=== PATIENT | male | born 1990 | race Caucasian/White ===

== ENCOUNTER 2019-11-26 19:32 | Emergency (ER) | payer SELFPAY ==
[2019-11-26 19:44] VITALS: BP 135/83; PULSE 92
--- NOTE | 2019-11-26 19:50 | EDM.PDOC ---
ED HPI GENERAL MEDICAL PROBLEM - General Chief Complaint: Respiratory Problem Stated Complaint: COUGH FOR 3 WEEKS Time Seen by Provider: 11/26/19 19:44 - History of Present Illness INITIAL COMMENTS - FREE TEXT/NARRATIVE: 29-year-old male presents the emergency room with a cough. This cough is been present for over 3 weeks now and just does not get better. Early on the patient had some stomach upset but with clear liquids this did get better but for the last couple weeks he to has this persistent cough. 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 The patient denies any fevers or chills. He has not had any significant chest discomfort or other complaints with this. - Related Data Allergies Allergy/AdvReac Type Severity Reaction Status Date / Time No Known Allergies Allergy Verified 11/26/19 19:42 Home Meds: Home Meds Doxycycline Hyclate 100 mg PO Q12H #18 tablet 11/26/19 [Rx] Past Medical History - Past Health History Medical/Surgical History: Denies Medical/Surgical History Social & Family History - Family History Family Medical History: Noncontributory - Caffeine Use Caffeine Use: Reports: Soda Other Caffeine Use: Mountain Dew ED ROS GENERAL - Review of Systems Review Of Systems: See Below Constitutional: Reports: No Symptoms HEENT: Reports: No Symptoms Respiratory: Reports: Cough. Denies: Shortness of Breath, Wheezing, Pleuritic Chest Pain, Sputum Cardiovascular: Reports: No Symptoms Endocrine: Reports: No Symptoms GI/Abdominal: Reports: No Symptoms ED EXAM, GENERAL - Physical Exam Exam: See Below Exam Limited By: No Limitations General Appearance: Alert, No Apparent Distress Eye Exam: Bilateral Eye: Normal Inspection Ears: Normal External Exam, Normal Canal, Hearing Grossly Normal, Normal TMs Nose: Normal Inspection, Normal Mucosa, No Blood Throat/Mouth: Normal Inspection, Normal Lips, Normal Gums, Normal Oropharynx, Normal Voice, No Airway Compromise, Other (All his teeth removed awaiting dentures) Head: Atraumatic, Normocephalic Neck: Normal Inspection, Supple, Non-Tender, Full Range of Motion. No: Lymphadenopathy (L), Lymphadenopathy (R) Respiratory/Chest: No Respiratory Distress, Lungs Clear, Normal Breath Sounds, No Accessory Muscle Use, Chest Non-Tender Cardiovascular: Regular Rate, Rhythm, No Edema, No Murmur Course - Vital Signs Last Recorded V/S: Last Vital Signs Temp 37.6 C 11/26/19 19:42 Pulse 92 11/26/19 19:42 Resp 19 11/26/19 19:42 BP 135/83 11/26/19 19:42 Pulse Ox 98 11/26/19 20:09 - Orders/Labs/Meds Orders: Active Orders 24 hr Category Date Time Status RT Post Treatment Assessment [RC] Click to Edit Care 11/26/19 19:52 Active RT Pre-Treatment Assessment [RC] Click to Edit Care 11/26/19 19:52 Active Chest 2V [CR] Stat Exams 11/26/19 19:51 Taken Doxycycline [Vibramycin] Med 11/26/19 20:15 Once 200 mg PO ONETIME ONE Medication Orders Doxycycline Hyclate (Vibramycin) 200 mg PO ONETIME ONE Stop: 11/26/19 20:16 Meds: Medications Generic Name Dose Route Start Last Admin Trade Name Freq PRN Reason Stop Dose Admin Doxycycline Hyclate 200 mg 11/26/19 20:15 Vibramycin PO 11/26/19 20:16 ONETIME ONE Discontinued Medications Generic Name Dose Route Start Last Admin Trade Name Freq PRN Reason Stop Dose Admin Albuterol 0 gm 11/26/19 19:51 11/26/19 20:08 Proventil Hfa INH 11/26/19 19:52 2 puff ONETIME ONE Administration - Re-Assessments/Exams Free Text/Narrative Re-Assessment/Exam: 11/26/19 20:19 Patient reports improvement after 2 puffs of albuterol from an MDI. Chest x- ray shows lower segmental right middle lobe density most likely representing an infiltrate. Patient be started on doxycycline as well as the MDI Departure - Departure Time of Disposition: 20:20 Disposition: Home, Self-Care 01 Clinical Impression: Pneumonia - Discharge Information Prescriptions: Doxycycline Hyclate 100 mg PO Q12H #18 tablet Referrals: PCP,None [Primary Care Provider] - Forms: ED Department Discharge Additional Instructions: Return to the emergency room with any questions problems or worsening symptoms. Take the antibiotics until all gone 1 twice daily. Use the inhaler 2 puffs every 4 hours while awake. Follow-up in the hospital clinic at the end of next week for recheck. [id number] Sepsis Event Note - Evaluation Sepsis Screening Result: No Definite Risk - Focused Exam Vital Signs: Vital Signs Temp Pulse Resp BP Pulse Ox Pulse Ox 11/26/19 20:09 98 11/26/19 19:42 37.6 C 92 19 135/83 97 Date Exam was Performed: 11/26/19 Time Exam was Performed: 20: - My Orders Last 24 Hours: My Active Orders 11/26/19 19:51 Chest 2V [CR] Stat 11/26/19 19:52 RT Post Treatment Assessment [RC] Click to Edit RT Pre-Treatment Assessment [RC] Click to Edit 11/26/19 20:15 Doxycycline [Vibramycin] 200 mg PO ONETIME ONE - Assessment/Plan Last 24 Hours: My Active Orders 11/26/19 19:51 Chest 2V [CR] Stat 11/26/19 19:52 RT Post Treatment Assessment [RC] Click to Edit RT Pre-Treatment Assessment [RC] Click to Edit 11/26/19 20:15 Doxycycline [Vibramycin] 200 mg PO ONETIME ONE
[2019-11-26] MEDS ORDERED: Albuterol 6.7 GM Inhaler INH ONE (19:51)
[2019-11-26] MEDS ORDERED: Doxycycline 100 MG Cap PO ONE (20:15)
--- NOTE | 2019-11-28 07:24 | CR ---
Chest: Two views of the chest were obtained. Comparison: No prior chest imaging. Increased density noted within the right mid and lower lung. Left lung is clear. Heart size and mediastinum are normal. Bony structures are unremarkable. Impression: 1. Increased density within the right lung as noted above. Findings most likely represent pneumonia. 2. Follow-up PA chest x-ray could be obtained after clinical therapy is complete to make sure finding resolves. Diagnostic code #3 This report was dictated in Mountain Standard Time
== END 2019-11-26 20:30 | disposition home or self-care (01) ==
LOC: JD.ED 19:32
DX: J18.9 Pneumonia, unspecified organism (principal)
CPT/HCPCS: 71046; 94640; 99283; A9270

== ENCOUNTER 2020-02-07 17:20 | Emergency (ER) | payer OTHER ==
[2020-02-07 17:28] VITALS: BP 128/86
[2020-02-07 17:30] VITALS: PULSE 69
[2020-02-07] MEDS ORDERED: HYDROmorphone 0.5 MG/0.5 ML Syringe IVPUSH ONE ×2 (17:33→20:58)
[2020-02-07] MEDS ORDERED: Ondansetron 4 MG/2 ML SDV IVPUSH ONE (17:33)
--- NOTE | 2020-02-07 17:39 | EDM.PDOC ---
ED HPI GENERAL MEDICAL PROBLEM - General Chief Complaint: Trauma Stated Complaint: FELL FROM ROOF/20FT Time Seen by Provider: 02/07/20 17:33 Source of Information: Reports: Patient, Family (co worker ) History Limitations: Reports: No Limitations - History of Present Illness INITIAL COMMENTS - FREE TEXT/NARRATIVE: 30-year-old male presents to the ED for evaluation of injuries to his right lower back and buttock on the right side after falling off a roof that he was working on. He states that he accidentally stepped on a ladder suellen and lost his balance and fell about 20 feet to the hard frozen ground. He landed hard on his right buttock and was unable to get up from the ground on his own volition. He is unable to bear weight on the right side. This injury occurred and killed their approximately 45 minutes to an hour ago. He denies hitting his head or losing consciousness. He states he did have the wind knocked out of him. He was slightly nauseated for a period of time but now feels somewhat better. Current pain is 8 out of 10 in the right buttock area. Denies losing control of his bowel or bladder. Is sitting primarily on his left buttock cheek and not able to put weight on the right buttock or iliac crest. Onset: Today Onset Date: 02/07/20 Onset Time: 16:30 Duration: Minutes:, Getting Worse Location: Reports: Back (Right iliac crest lower back and buttock area. Lower lumbar spine), Pelvis Quality: Reports: Ache, Throbbing Severity: Moderate (10) Improves with: Reports: Rest Worsens with: Reports: Movement Context: Reports: Trauma (Fell approximately 20 feet off a roof that he was working on landing hard on the right buttock and iliac crest.). 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 [No Known Home Meds] 02/07/20 [History] Past Medical History - Past Health History Medical/Surgical History: Denies Medical/Surgical History Social & Family History - Family History Family Medical History: Noncontributory - Tobacco Use Smoking Status *Q: Never Smoker - Caffeine Use Caffeine Use: Reports: Soda Other Caffeine Use: Mountain Dew - Recreational Drug Use Recreational Drug Use: No - Living Situation & Occupation Living situation: Reports: Single Occupation: Employed Review of Systems - Review of Systems Review Of Systems: See Below Constitutional: Reports: No Symptoms Eyes: Reports: No Symptoms Ears: Reports: No Symptoms Nose: Reports: No Symptoms Mouth/Throat: Reports: No Symptoms Respiratory: Reports: No Symptoms Cardiovascular: Reports: No Symptoms GI/Abdominal: Reports: No Symptoms Genitourinary: Reports: No Symptoms Musculoskeletal: Reports: Back Pain, Other (Diffuse low back pain right posterior buttock and iliac pain) Skin: Reports: No Symptoms Neurological: Reports: No Symptoms Psychiatric: Reports: No Symptoms ED EXAM, GENERAL - Physical Exam Exam: See Below Exam Limited By: No Limitations General Appearance: Alert, WD/WN, Moderate Distress, Other (Temperature is 37.1 pulse is 77 and sinus respiratory to 16 BP 128/86 with O2 sats of 100% on room air.) Eye Exam: Bilateral Eye: Normal Inspection Throat/Mouth: Normal Inspection, Normal Lips, Normal Oropharynx, Other Head: Atraumatic (No injuries to the tongue or teeth.), Normocephalic Neck: Normal Inspection, Supple, Non-Tender, Full Range of Motion, Other. No: Lymphadenopathy (L), Lymphadenopathy (R) Respiratory/Chest: No Respiratory Distress (Is full unopposed range of motion of his cervical spine.), Lungs Clear, Normal Breath Sounds, No Accessory Muscle Use, Chest Non-Tender, Other (No pain on firm compression of the sternum or ribs.) Cardiovascular: Normal Peripheral Pulses, Regular Rate, Rhythm, No Edema, No Gallop, No Murmur, No Rub Peripheral Pulses: 3+: Posterior Tibial (L), Posterior Tibial (R), Dorsalis Pedis (L), Dorsalis Pedis (R) GI/Abdominal: Normal Bowel Sounds, Soft, Non-Tender, No Organomegaly, No Distention, No Abnormal Bruit, No Mass, Pelvis Stable, Other (Gait full weight well muscled abdomen with no tenderness elicited.) (Male) Exam: Other (No blood at the urethral meatus although the urethral meatus itself is actually quite tiny.) Rectal (Males) Exam: Other (He has a palpable hematoma over the right buttock with pain to palpation. No open wounds apparent.) Back Exam: Other (He has mild pain on firm compression over the L5 facet joint on the right side. The spinous processes appear to be well aligned. He has no overlying paraspinal muscle spasm he has no pain on firm compression of the rest of his thoracic spine or lumbar spine. There is swelling in the right buttock over the iliac crest. No pain on firm compression along the posterior iliac crest. No pain on firm compression of the right ischial tuberosity. However when he tries to lift his left leg he has significant pain on the right side of his pelvis.) Extremities: Other (No injuries to the left lower extremity but when he lifts his left leg off the gurney he has significant pain in his right buttock and pelvis area. There is no injury below the knee on the right side. No obvious injury to the mid or lower femur on the right side. There is some pain on the right hip over the greater tuberosity. No bruising or abrasions appreciated. There is some pain on her firm compression of the pubic symphysis on the right side with no obvious deformity. He has pain on firm compression of the right iliac wing over the anterior iliac spine.) Neurological: Alert, Oriented, CN II-XII Intact, Normal Cognition, Other Psychiatric: Normal Affect (Normal sensation to both lower extremities), Anxious , Other Skin Exam: Warm, Dry (In a good deal of pain), Intact, Normal Color, No Rash Course - Vital Signs Last Recorded V/S: Last Vital Signs Temp 37.1 C 02/07/20 17:29 Pulse 69 02/07/20 17:29 Resp 16 02/07/20 17:29 BP 128/86 02/07/20 17:29 Pulse Ox 100 02/07/20 17:29 - Orders/Labs/Meds Orders: Active Orders 24 hr Category Date Time Status Flor Catheter Insertion [Insert Urinary Catheter] [OM. Care 02/07/20 19:00 Ordered PC] Q24H Urinary Catheter Assessment [RC] ASDIRECTED Care 02/07/20 18:51 Active Femur Min 2V Rt [CR] Stat Exams 02/07/20 17:36 Taken Lumbar Spine wo Cont [CT] Stat Exams 02/07/20 17:33 Taken Pelvis wo Cont [CT] Stat Exams 02/07/20 17:35 Taken URINALYSIS W/MICROSCOPIC [UA W/MICROSCOPIC] [URIN] Stat Lab 02/07/20 19:46 Results Dextrose 5%-0.9% NaCl [Dextrose 5%-Normal Saline] 1,000 Med 02/07/20 19:00 Active ml IV ASDIRECTED Medication Orders Dextrose/Sodium Chloride (Dextrose 5%-Normal Saline) 1,000 mls @ 150 mls/hr IV ASDIRECTED HEATH Last Admin: 02/07/20 19:15 Dose: 150 mls/hr Labs: Laboratory Tests 02/07/20 02/07/20 02/07/20 Range/Units 17:30 17:30 17:30 WBC 7.30 (4.23-9.07) K/mm3 RBC 4.52 L (4.63-6.08) M/mm3 Hgb 14.0 (13.7-17.5) gm/dl Hct 40.6 (40.1-51.0) % MCV 89.8 (79.0-92.2) fl MCH 31.0 (25.7-32.2) pg MCHC 34.5 (32.2-35.5) g/dl RDW Std Deviation 38.5 (35.1-43.9) fL Plt Count 283 (163-337) K/mm3 MPV 8.8 L (9.4-12.3) fl Neut % (Auto) 75.5 H (34.0-67.9) % Lymph % (Auto) 18.1 L (21.8-53.1) % [place] % (Auto) 5.2 L (5.3-12.2) % Eos % (Auto) 0.4 L (0.8-7.0) Baso % (Auto) 0.3 (0.1-1.2) % Neut # (Auto) 5.51 H (1.78-5.38) K/mm3 Lymph # (Auto) 1.32 (1.32-3.57) K/mm3 [place] # (Auto) 0.38 (0.30-0.82) K/mm3 Eos # (Auto) 0.03 L (0.04-0.54) K/mm3 Baso # (Auto) 0.02 (0.01-0.08) K/mm3 PT 11.8 (9.7-12.0) SECONDS INR 1.09 APTT 22 (22-31) SECONDS Sodium 139 (136-145) mEq/L Potassium 3.8 (3.5-5.1) mEq/L Chloride 104 (98-107) mEq/L Carbon Dioxide 28 (21-32) mEq/L Anion Gap 10.8 (5-15) BUN 11 (7-18) mg/dL Creatinine 0.9 (0.7-1.3) mg/dL Est Cr Clr Drug Dosing 105.35 mL/min Estimated GFR (MDRD) > 60 (>60) mL/min BUN/Creatinine Ratio 12.2 L (14-18) Glucose 108 H (74-106) mg/dL Calcium 8.7 (8.5-10.1) mg/dL Total Bilirubin 0.7 (0.2-1.0) mg/dL AST 26 (15-37) U/L ALT 29 (16-63) U/L Alkaline Phosphatase 82 (46-116) U/L Total Protein 7.5 (6.4-8.2) g/dl Albumin 4.4 (3.4-5.0) g/dl Globulin 3.1 gm/dL Albumin/Globulin Ratio 1.4 (1-2) Urine Color (Yellow) Urine Appearance (Clear) Urine pH (5.0-8.0) Ur Specific [place] (1.005-1.030) Urine Protein (Negative) Urine Glucose (UA) (Negative) Urine Ketones (Negative) Urine Occult Blood (Negative) Urine Nitrite (Negative) Urine Bilirubin (Negative) Urine Urobilinogen (0.2-1.0) Ur Leukocyte Esterase (Negative) 02/07/20 Range/Units 19:46 WBC (4.23-9.07) K/mm3 RBC (4.63-6.08) M/mm3 Hgb (13.7-17.5) gm/dl Hct (40.1-51.0) % MCV (79.0-92.2) fl MCH (25.7-32.2) pg MCHC (32.2-35.5) g/dl RDW Std Deviation (35.1-43.9) fL Plt Count (163-337) K/mm3 MPV (9.4-12.3) fl Neut % (Auto) (34.0-67.9) % Lymph % (Auto) (21.8-53.1) % Mingo % (Auto) (5.3-12.2) % Eos % (Auto) (0.8-7.0) Baso % (Auto) (0.1-1.2) % Neut # (Auto) (1.78-5.38) K/mm3 Lymph # (Auto) (1.32-3.57) K/mm3 [place] # (Auto) (0.30-0.82) K/mm3 Eos # (Auto) (0.04-0.54) K/mm3 Baso # (Auto) (0.01-0.08) K/mm3 PT (9.7-12.0) SECONDS INR APTT (22-31) SECONDS Sodium (136-145) mEq/L Potassium (3.5-5.1) mEq/L Chloride (98-107) mEq/L Carbon Dioxide (21-32) mEq/L Anion Gap (5-15) BUN (7-18) mg/dL Creatinine (0.7-1.3) mg/dL Est Cr Clr Drug Dosing mL/min Estimated GFR (MDRD) (>60) mL/min BUN/Creatinine Ratio (14-18) Glucose (74-106) mg/dL Calcium (8.5-10.1) mg/dL Total Bilirubin (0.2-1.0) mg/dL AST (15-37) U/L ALT (16-63) U/L Alkaline Phosphatase (46-116) U/L Total Protein (6.4-8.2) g/dl Albumin (3.4-5.0) g/dl Globulin gm/dL Albumin/Globulin Ratio (1-2) Urine Color Light yellow (Yellow) Urine Appearance Clear (Clear) Urine pH 7.0 (5.0-8.0) Ur Specific [place] 1.025 (1.005-1.030) Urine Protein Negative (Negative) Urine Glucose (UA) Negative (Negative) Urine Ketones Negative (Negative) Urine Occult Blood Trace-intact H (Negative) Urine Nitrite Negative (Negative) Urine Bilirubin Negative (Negative) Urine Urobilinogen 0.2 (0.2-1.0) Ur Leukocyte Esterase Negative (Negative) Meds: Medications Generic Name Dose Route Start Last Admin Trade Name Valentino PRN Reason Stop Dose Admin Dextrose/Sodium Chloride 1,000 mls @ 150 mls/hr 02/07/20 19:00 02/07/20 19:15 Dextrose 5%-Normal Saline IV 150 mls/hr ASDIRECTED HEATH Administration Discontinued Medications Generic Name Dose Route Start Last Admin Trade Name Valentino PRN Reason Stop Dose Admin Hydromorphone HCl 0.5 mg 02/07/20 17:33 02/07/20 17:45 Dilaudid IVPUSH 02/07/20 17:34 0.5 mg ONETIME ONE Administration Dextrose/Sodium Chloride 1,000 mls @ 999 mls/hr 02/07/20 17:45 02/07/20 17:45 Dextrose 5%-Normal Saline IV 999 mls/hr ASDIRECTED HEATH Administration Lidocaine HCl 10 ml 02/07/20 18:49 02/07/20 19:01 Xylocaine 2% Jelly MUCMEM 02/07/20 18:50 10 ml ONETIME ONE Administration Ondansetron HCl 4 mg 02/07/20 17:33 02/07/20 17:45 Zofran IVPUSH 02/07/20 17:34 4 mg ONETIME ONE Administration - Radiology Interpretation Free Text/Narrative:: 30-year-old male presents to the ED after falling approximately 20 feet from a roof that he was working on. He states he stepped on a ladder suellen and lost his balance causing him to fall to the frozen ground. He landed hard on his right buttock and iliac crest. Knocked the wind out of him. He did not hit his head and did not lose consciousness. He has no obvious injuries to his upper extremities head neck or spine. There is mild tenderness of L5 facet joint on the right side but most of the pain is in the true gluteus daysi over the iliac crest and iliac wing on the right side. He is unable to lift his right leg without severe pain. Left leg raising causes pain on the right side tight. He will therefore have CT of his lumbar spine his pelvis and an x- ray of his right femur to be done. Current pain is 8 out of 10. I am going to give him D5 normal saline at open. He received Dilaudid 0.5 mg IV with Zofran 4 mg IV for pain relief. - Re-Assessments/Exams Free Text/Narrative Re-Assessment/Exam: 02/07/20 18:13: X-rays of the right femur do not reveal any fractures. X-rays of the lumbar spine are within normal limits as well with no fractures identified. Minimal convexity of the lumbar spine to the left which was positional rather than structural. CT of the pelvis reveals a moderately comminuted nondisplaced fracture of the innominate bone on the right side. There is a tiny hairline fracture of the right superior pubic ramus at this juncture with the acetabulum. There is another fracture of the inferior pubic ramus on the right just posterior to the pubic symphysis. No lumbosacral spine fractures are appreciated. She reports pain is under control with current medications. The plan will be to instill lidocaine gel into the penis as there is no blood at the urethral meatus and place a Flor catheter as he is at risk of contusion to the bladder due to fracture of the pubic ramus on the right side. 14-gauge catheter will be utilized as his urethral meatus is very tiny. 02/07/20 19:18 : Labs reveal a normal white count at 7.30. Differential shows 75.5% neutrophils in the auto differential. Hemoglobin is 14.0 with hematocrit of 40.6. MCV is normal. Platelet count is normal at 283,000. PT is 11.8 with an INR of 1.09 PTT is 22. Sodium is 139 with a potassium of 3.8 chloride 104 with a bicarb of 28. Anion gap is 10.8. BUN is 11 with a creatinine of 0.9. Estimated GFR is greater than 60. Glucose is 108. Calcium is 8.7 liver function is normal. Urinalysis came back showing trace of occult blood but no signs of infection. The Flor catheter is continued to drain clear phyllis urine. This time the patient states that he is comfortable and does not request any further analgesia. I have entered into discussions with orthopedic surgeon and ER physician at [facility] in [place] and a trauma surgeon --will be the accepting physician through the ED at [facility] in [place]. The patient will be flown to that institution as it is too far for ground ambulance to transport. This time it is questionable whether he will require any surgical intervention. We have no one in [place] or [place] that will take on any pelvic fractures. Departure - Departure Time of Disposition: 20:19 Disposition: DC/Tfer to Acute Hospital 02 Condition: Fair Clinical Impression: Fall from height of greater than 3 feet Closed fracture of right iliac wing Qualifiers: Encounter type: initial encounter Qualified Code(s): S32.301A - Unspecified fracture of right ilium, initial encounter for closed fracture Fracture of right inferior pubic ramus Qualifiers: Encounter type: initial encounter Fracture type: closed Qualified Code(s): S32.591A - Other specified fracture of right pubis, initial encounter for closed fracture - Discharge Information *PRESCRIPTION DRUG MONITORING PROGRAM REVIEWED*: Not Applicable *COPY OF PRESCRIPTION DRUG MONITORING REPORT IN PATIENT LICO: Not Applicable Referrals: PCP,None [Primary Care Provider] - Forms: ED Department Discharge Additional Instructions: Patient will be flown by [facility] to for orthopedic surgical consultation and management of pelvic fracture involving a comminuted fracture of his right iliac wing undisplaced fracture of the right pelvis adjacent to the acetabulum and fracture of the right inferior pubic ramus. He was involved in a fall from height greater than 20 feet and does not appear to have suffered any other injuries. Sepsis Event Note - Evaluation Sepsis Screening Result: No Definite Risk - Focused Exam Vital Signs: Vital Signs Temp Pulse Resp BP Pulse Ox 02/07/20 17:29 37.1 C 69 16 128/86 100 02/07/20 17:26 37.1 C 77 16 128/86 100 Date Exam was Performed: 02/07/20 Time Exam was Performed: 20:11 - My Orders Last 24 Hours: My Active Orders 02/07/20 17:33 Lumbar Spine wo Cont [CT] Stat 02/07/20 17:35 Pelvis wo Cont [CT] Stat 02/07/20 17:36 Femur Min 2V Rt [CR] Stat 02/07/20 18:51 Urinary Catheter Assessment [RC] ASDIRECTED 02/07/20 19:00 Flor Catheter Insertion [Insert Urinary Catheter] [OM.PC] Q24H Dextrose 5%-0.9% NaCl [Dextrose 5%-Normal Saline] 1,000 ml IV ASDIRECTED 02/07/20 19:46 URINALYSIS W/MICROSCOPIC [UA W/MICROSCOPIC] [URIN] Stat - Assessment/Plan Last 24 Hours: My Active Orders 02/07/20 17:33 Lumbar Spine wo Cont [CT] Stat 02/07/20 17:35 Pelvis wo Cont [CT] Stat 02/07/20 17:36 Femur Min 2V Rt [CR] Stat 02/07/20 18:51 Urinary Catheter Assessment [RC] ASDIRECTED 02/07/20 19:00 Flor Catheter Insertion [Insert Urinary Catheter] [OM.PC] Q24H Dextrose 5%-0.9% NaCl [Dextrose 5%-Normal Saline] 1,000 ml IV ASDIRECTED 02/07/20 19:46 URINALYSIS W/MICROSCOPIC [UA W/MICROSCOPIC] [URIN] Stat
[2020-02-07] MEDS ORDERED: Dextrose 5%-0.9% NaCl 1,000 ML IV SCH ×2 (17:45→19:00)
[2020-02-07] MEDS ORDERED: Lidocaine 2% Jelly 10 ML Urojet MUCMEM ONE (18:49)
--- NOTE | 2020-02-08 14:05 | CT ---
CT lumbar spine Technique: Multiple axial sections were obtained from the top of T12 inferiorly through the L5-S1 disc. Reconstructed sagittal and coronal images were reviewed. Comparison: No prior lumbar spine imaging is available. Findings: Vertebral body heights and disc spaces are fairly well preserved. No discrete fracture is seen within the lumbar spine. Pelvic fractures are noted on the right side as described on CT pelvis exam. Very slight circumferential disc bulge is noted at L4-5. No traumatic disc herniation is seen. No abnormal subluxation is seen. Impression: 1. Right-sided pelvic fractures are noted as described on CT pelvis exam. 2. Nothing acute is appreciated on CT study of the lumbar spine. Diagnostic code #3 This report was dictated in MDT I agree with preliminary report from Shanita, finalized on 02/07/20, 7:25 PM Central Time
--- NOTE | 2020-02-08 14:05 | CT ---
CT pelvis Technique: Multiple axial sections were obtained from above the iliac crests inferiorly through the pubic symphysis. No contrast was utilized. Reconstructed coronal and sagittal images were obtained. Comparison: No prior pelvis study is available. Findings: Slightly comminuted fracture is noted within the right iliac bone with 2 fracture lines extending into the right sacroiliac joint. Slight articular step-off at the sacroiliac joint by approximately 2 mm. Additional nondisplaced fracture is noted within the superior right pubic ramus. Mildly displaced fracture is through noted within the right inferior pubic ramus. No left-sided pelvic fracture is seen. Impression: 1. Slightly comminuted fracture within the right iliac bone extending into the right sacroiliac joint. 2. Inferior and superior right pubic ramus fractures. Diagnostic code #3 This report was dictated in MDT I agree with preliminary report from zhen, finalized on 02/07/20, 7:32 PM Central Time
--- NOTE | 2020-02-08 14:05 | CR ---
Right femur: AP and lateral views of the right femur were obtained. Comparison: No previous femur exam. No fracture seen within the femur. Lucent lines are identified lateral to the right sacroiliac joint within the ileum compatible with pelvic fracture. Impression: 1. Right-sided pelvic fracture. 2. No femur fracture is identified. Diagnostic code #3 This report was dictated in MDT
== END 2020-02-07 21:20 ==
LOC: JD.ED 17:20
DX: S32.591A Other specified fracture of right pubis, initial encounter for closed fracture (principal); S32.301A Unspecified fracture of right ilium, initial encounter for closed fracture; W13.2XXA Fall from, out of or through roof, initial encounter
CPT/HCPCS: 36415; 51702; 72131; 72192; 73552; 80053; 81001; 85025; 85610; 85730; 96361; 96374; 96375; 96376; 99285; J1170; J2405; J7042

== ENCOUNTER 2023-06-25 06:03 | Emergency (ER) | payer OTHER ==
[2023-06-25] MEDS ORDERED: Lidocaine 1% 10 ML MDV INJECT ONE (06:21)
[2023-06-25] MEDS ORDERED: Diphtheria,Pertussis(Acell),Tetanus Vaccine 0.5 ML Syringe IM ONE (06:39)
[2023-06-25 07:14] VITALS: BP 120/72; PULSE 70
== END 2023-06-25 07:05 | disposition home or self-care (01) ==
LOC: JD.ED 06:03
DX: S61.341A Puncture wound with foreign body of left index finger with damage to nail, initial encounter (principal); Z23 Encounter for immunization; Z87.891 Personal history of nicotine dependence; W45.8XXA Other foreign body or object entering through skin, initial encounter
CPT/HCPCS: 64450; 90471; 90715; 99282; 99282-25; J3490